=== PATIENT | female | born 1950 | race African-American/Black ===

== ENCOUNTER → 2016-12-01 | Outpatient (CLI) | payer OTHER ==
[~2016-12-01] MED LIST: ALENDRONATE SOD35 MG PO; ALEVE220 MG PO; ASPIRIN EC81 M1 PO; ATENOLOL 50MG T50 M1 PO; BIOTIN5 M1 PO; BIOTIN5000 MCG PO; CALCIUM 600 +1 EAC1 PO; CALCIUM 600 +1 EAC5 PO; CHILDREN'S ASPI81 M1 PO; COLLAGEN HYDROLY1 GM PO; DICLOFENAC SODI75 MG PO; EVAMIST8.1 ML TOP; FLAXSEED OIL1000 MG PO; HAIR, SKIN AND1 EACH PO; HYDROCHLOROTHIA25 M1 PO; JOINT CARE PO; LIPITOR 20 MG T20 M1 PO; MELOXICAM15 MG PO; METAFOLBIC TAB1 EACH PO; OMEGA 3 FISH O1 EACH PO; SIMVASTATIN20 MG PO; TONALIN CLA 11000 MG PO; TOPROL XL50 MG PO; TRAMADOL 50 MG50 MG PO; VITAMIN B-12500 MCG PO; VITAMINC500 PO; VOLTAREN GEL 1100 G2 TOP; [UNRECOGNIZED DRUG - OTHER] PO; [UNRECOGNIZED DRUG - OTHER] PO; [UNRECOGNIZED DRUG - OTHER] PO
== END ==
LOC: RAD 11-26 11:02
DX: Z12.31 Encounter for screening mammogram for malignant neoplasm of breast (principal)

== ENCOUNTER 2016-12-08 01:29 | Inpatient (IN) | payer OTHER ==
[2016-12-02 11:40] LABS: URINE BILIRUBIN NEGATIVE (Negative); URINE BLOOD NEGATIVE (Negative); URINE COLOR YELLOW; URINE GLUCOSE-RANDOM* NEGATIVE (Negative); URINE KETONES NEGATIVE (Negative); URINE LEUKOCYTES-REFLEX NEGATIVE (Negative); URINE PROTEIN (DIPSTICK) TRACE (Negative); URINE SPECIFIC GRAVITY >= 1.030 (1.003-1.035); URINE UROBILINOGEN 0.2 E.U./dl (0.2-1.0)
[2016-12-02 11:55] LABS: ALBUMIN 3.9 g/dL (3.4-5.0); CALCIUM 9.7 mg/dL (8.5-10.1); CREATININE 0.8 mg/dL (0.6-1.0); POTASSIUM 4.6 mmol/L (3.5-5.1)
[~2016-12-08] VITALS: Ht 165.1 cm; Wt 68.0 kg
[2016-12-08] VITALS (8 sets, daily range): BP systolic 99–138; BP diastolic 59–90
--- NOTE | ~2016-12-08 | O ---
[facility] [place] [address] [place] [address] OPERATIVE REPORT Name: JOANN VELA Room #: 409-P [facility] IN M.R.#: [id number] Admission: 12/08/16 Attend Phys: Kody Valera MD Discharge: Date of : 54 Report #: [id number] THIS REPORT FOR: //name// CC: Kiran Valera DATE OF SERVICE: 12/08/2016 PREOPERATIVE DIAGNOSIS: Right hip severe osteoarthritis. POSTOPERATIVE DIAGNOSIS: Right hip severe osteoarthritis. PROCEDURE: Right total hip arthroplasty. SURGEON: Kody Valera MD. INVISIBLE BRACES ORTHODONTIST: Marbella Fragoso PA-C. ANESTHESIA: General endotracheal. INDICATION FOR INVISIBLE BRACES ORTHODONTIST: Extensive retraction as well as dislocation and reduction of the hip was required throughout the procedure and this was afforded to me by my physician industrial hire sales assistant. IMPLANTS: Levi and Nephew size 52 R3 acetabular cup, size 11 high offset Synergy press-fit stem with a size 32+0 Oxinium head. ESTIMATED BLOOD LOSS: 100 mL. COMPLICATIONS: None. SPECIMENS: None. CONDITION UPON LEAVING THE OPERATING ROOM: Stable. INDICATIONS FOR PROCEDURE: The patient is a 66-year-old female with severe right hip osteoarthritis who had failed conservative treatment for this. After discussion with her, she elected for right total hip arthroplasty. DESCRIPTION OF PROCEDURE: Risks, benefits, alternatives, complications were discussed in detail with the patient including but not limited to risk of anesthesia, risk of damage to nerves, arteries, blood vessels, risk for infection, bleeding, risk for continued hip pain, leg length discrepancy, instability and need for reoperation. Informed consent was obtained from the patient. Right hip was appropriately marked in the preoperative holding area. IV Ancef was given for preoperative antibiotic. She was brought to the [facility] [address] [place] [address] OPERATIVE REPORT Name: JOANN VELA Room #: 409-P [facility] IN .R.#: [id number] Admission: 12/08/16 Attend Phys: Kody Valera MD Discharge: Date of : 54 Report #: [id number] operating room and placed in supine position on operating room table. General endotracheal anesthesia was induced without complication. She was placed in the left lateral decubitus position with the right hip uppermost. Right hip and lower extremity were prepped and draped in normal sterile fashion. Timeout was performed properly identifying the patient and procedure as well as the instrumentation and implants. All in the operating room were in agreement. Standard posterior approach to the hip was made with 10 blade through the skin. Dissection was taken down to the fascia with Bovie cautery and Sanchez elevator was used to clean off the fascia. A fresh #10 blade was used to make a fascial incision and this was taken proximally and distally with curved Steven scissor. Charnley retractor was placed. Trochanteric bursa was taken down with Bovie. The piriformis tendon was identified, tagged and taken down with Bovie. Short external rotators were also taken down with Bovie cautery. Capsulotomy was made and capsule ends were tagged for later repair. The hip was dislocated by my industrial hire sales assistant and there was extensive osteoarthritic change of the femoral head. Femoral neck cut was made 1 cm proximal to lesser trochanter based on preoperative templating. Femoral head was removed. Deep acetabular retractors were placed and labrum was removed sharply. Pulvinar was removed with Bovie cautery. The acetabulum was sequentially reamed up to a size 52, at which point there was excellent bleeding cancellous bone. A size 51 trial cup was placed and found to have a good fit. A final size 52 R3 acetabular cup was placed and one acetabular screw was placed for backup fixation. The polyethylene liner for 32 head was placed. After this, attention was turned to the femur. This was reamed and broached up to a size 11, at which point the size 11 broach was stable. This was trialed with a high offset neck and a 32+0 head. Hip was reduced, took through range of motion, found to be stable, found to have equal leg lengths. Hip was dislocated and the broach was removed. Final size 11 high offset Synergy press fit stem was placed. This was trialed again with a size 32+0 head. Hip was reduced, taken through range of motion, found to be stable, found to have equal leg lengths. The hip was dislocated one more time and a final size 32+0 Oxinium head was placed. Hip again was reduced, taken through range of motion, found to be stable, found to have equal leg lengths. A periarticular injection consisting of morphine, ropivacaine, epinephrine and Toradol was placed. The capsule and piriformis were repaired with 0 FiberWire. The fascia was closed with 0 Vicryl. A gram of vancomycin was placed deep in the hip joint prior to capsular closure. The fascia was closed with 0 Vicryl, skin was closed with 2-0 Vicryl, 3-0 Monocryl, and Dermabond. Soft dressing of GRZEGORZ dressing was applied. The patient tolerated this procedure well and went to the recovery room under the care of Anesthesia postoperatively. <ELECTRONICALLY SIGNED> By: Kody Valera MD 12/09/16 1053 [id number] [id number] Kody Valera MD /nt
--- NOTE | ~2016-12-08 | EKG ---
[address] [address] ELECTROCARDIOGRAM REPORT Name: JOANN VELA Room #: PRE IN [facility].#: [id number] Admission: Attend Phys: Kody Valera MD Discharge: Date of : 54 Report #: [id number] THIS REPORT FOR: //name// [facility] Test Date: 2016-12-02 Test Time: 10:44:24 Pat Name: JOANN VELA Department: Room: Gender: F Resolute Professional: Pedro IBRAHIM : 1950 Requested By: Kody Valera Order Number: [id number] MD: Michael Arreguin Measurements Intervals [place] Rate: 61 P: 50 [place]: 168 QRS: 50 QRSD: 81 T: 19 QT: 400 QTc: 403 Interpretive Statements Sinus rhythm Abnormal R-wave progression, early transition Compared to ECG 09/05/1996 10:48:00 No significant changes Electronically Signed On 12-02-2016 13:06:40 CDT by Michael Arreguin [email or web address] <ELECTRONICALLY SIGNED> By: Michael Arreguin MD 12/02/16 1306 1044 104 Michael Arreguin MD /DOLORES
[2016-12-09 00:16] VITALS: BP 100/70
[2016-12-09 05:40] VITALS: BP 119/73
[2016-12-09 06:35] LABS: HEMATOCRIT 28.6 % (37.0-47.0); HEMOGLOBIN 9.8 gm/dL (12.0-15.0); MCH 29.6 pg (26.0-34.0); MCHC 34.3 g/dL (28.0-37.0); MCV 86.4 fL (80.0-100.0); RBC 3.31 mil/uL (4.20-5.00); RDW 13.7 % (10.5-14.5); WBC 11.6 thou/uL (4.0-11.0)
[2016-12-09 09:27] VITALS: BP 119/65
[2016-12-09 20:00] VITALS: BP 98/61
[2016-12-10 06:00] LABS: HEMATOCRIT 27.4 % (37.0-47.0); HEMOGLOBIN 9.5 gm/dL (12.0-15.0); MCH 30.1 pg (26.0-34.0); MCHC 34.5 g/dL (28.0-37.0); RBC 3.14 mil/uL (4.20-5.00); RDW 13.7 % (10.5-14.5); WBC 7.6 thou/uL (4.0-11.0)
[2016-12-10 08:50] VITALS: BP 95/64
[2016-12-10 16:03] VITALS: BP 98/64
[2016-12-10 19:40] VITALS: BP 99/59
[2016-12-11 04:00] VITALS: BP 95/58
[2016-12-11 06:32] LABS: HEMATOCRIT 26.6 % (37.0-47.0); HEMOGLOBIN 9.1 gm/dL (12.0-15.0); MCH 29.8 pg (26.0-34.0); MCHC 34.2 g/dL (28.0-37.0); RBC 3.06 mil/uL (4.20-5.00); RDW 13.6 % (10.5-14.5); WBC 7.4 thou/uL (4.0-11.0)
[2016-12-11 08:00] VITALS: BP 105/57
[2016-12-11] MEDS ORDERED: HYDROCODON-ACE1 EAC7 PO (10:28)
[2016-12-11] MEDS ORDERED: CVS BUFFERED A325 MG PO (10:28)
[2016-12-11] MEDS ORDERED: MS CONTIN15 MG PO (10:29)
[2016-12-11 12:08] VITALS: BP 105/57
[2016-12-11 15:57] VITALS: BP 105/57
[2016-12-11 17:13] VITALS: BP 105/57
== END 2016-12-11 19:10 | disposition home or self-care (01) | DRG 470 ==
LOC: PRE → TBA 07:46 → 4N 07:46 → PRE 08:41 → 4N 15:48
PROVIDERS: Orthopaedic Surgery
PROC: 0SR903A Replacement of Right Hip Joint with Ceramic Synthetic Substitute, Uncemented, Open Approach (ICD-10-PCS; principal; 2016-12-08)
DX: M16.11 Unilateral primary osteoarthritis, right hip (principal); Z23 Encounter for immunization
CPT/HCPCS: 10790; 50010; 50101; 50382; 50414; 51771; 53000; 53078; 53368; 54118; 56524; 56527; 56528; 56530; 57095; 62110; 62900; 70005

== ENCOUNTER → 2017-08-03 | Outpatient (CLI) | payer OTHER ==
[~2017-08-03] MED LIST changes: +CVS BUFFERED A325 MG PO; +HYDROCODON-ACE1 EAC7 PO; +MS CONTIN15 MG PO
== END ==
LOC: CAT 13:05
DX: M25.551 Pain in right hip (principal)

== ENCOUNTER → 2017-08-06 | Outpatient (CLI) | payer OTHER | LOC: ULTRA 06:38 | DX: M71.21 Synovial cyst of popliteal space [Baker], right knee (principal) ==

== ENCOUNTER → 2017-12-16 | Outpatient (CLI) | payer OTHER | LOC: RAD 02:42 | DX: Z12.31 Encounter for screening mammogram for malignant neoplasm of breast (principal) ==

== ENCOUNTER 2018-07-22 05:42 | Inpatient (IN) | payer OTHER ==
[2018-07-14 09:04] LABS: HEMATOCRIT 44.1 % (37.0-47.0); HEMOGLOBIN 14.7 gm/dL (12.0-15.0); MCH 29.7 pg (26.0-34.0); MCHC 33.3 g/dL (28.0-37.0); RBC 4.95 mil/uL (4.20-5.00); RDW 14.4 % (10.5-14.5); WBC 5.8 thou/uL (4.0-11.0)
[2018-07-14 09:05] LABS: URINE BILIRUBIN NEGATIVE (Negative); URINE BLOOD NEGATIVE (Negative); URINE CLARITY CLEAR; URINE COLOR YELLOW; URINE GLUCOSE-RANDOM* NEGATIVE (Negative); URINE KETONES NEGATIVE (Negative); URINE LEUKOCYTES-REFLEX NEGATIVE (Negative); URINE NITRITE-REFLEX NEGATIVE (Negative); URINE PROTEIN (DIPSTICK) NEGATIVE (Negative)
[2018-07-14 09:14] LABS: CALCIUM 9.6 mg/dL (8.5-10.1); CREATININE 0.9 mg/dL (0.6-1.0); POTASSIUM 4.3 mmol/L (3.5-5.1)
--- NOTE | 2018-07-15 16:25 | EKG ---
[address] [address] ELECTROCARDIOGRAM REPORT Name: JOANN VELA Room #: PRE IN [facility].#: [id number] ������������������ Admission: ������������������ Attend Phys: Kody Valera MD Discharge: ������������������ Date of : 54 Report #: [id number] ����������������������������������������������������������������� [id number] THIS REPORT FOR: //name// [facility] Test Date: 2018-07-14 Test Time: 09:00:38 Pat Name: JOANN VELA Department: Room: Gender: F Financial Assistance Specialist: [place]ber[place] : 1950 Requested By: Kody Valera Order Number: [id number] MD: Michael Arreguin Measurements Intervals [place] Rate: 60 P: 44 [place]: 179 QRS: 46 QRSD: 83 T: 13 QT: 403 QTc: 403 Interpretive Statements Sinus rhythm Abnormal R-wave progression, early transition Baseline wander in lead(s) V2 Compared to ECG 12/02/2016 10:44:24 No significant changes Electronically Signed On 07-15-2018 16:24:52 CDT by Michael Arreguin [email or web address] ��������������������������������������������� <ELECTRONICALLY SIGNED> ���������������������������������������� By: Michael Arreguin MD ��������������������������������������������� 07/15/18 1624 09 9 Michael Arreguin MD /DOLORES
[~2018-07-22] VITALS: Ht 165.1 cm; Wt 74.4 kg
[~2018-07-22 05:42] MED LIST changes: +ASPIR 8181 M1 PO; +GARCINIA CAMBO1 EACH PO; +JOINT HEALTH T1 EACH PO
[2018-07-22 12:56] VITALS: BP 141/88
[2018-07-22 19:20] VITALS: BP 137/84
--- NOTE | 2018-07-22 20:07 | NUR ---
ARRIVED TO FLOOR VIA BED FROM PACU AWAKE, ALERT AND ORIENTED X 4. VERY PLEASANT AND COOPERATIVE. ZOFRAN GIVEN FOR NAUSEA AND HAD COMPLETE RELIEF. GRZEGORZ DRESSING INTACT AND COMPRESSED TO RIGHT KNEE. TOLERATING REGULAR DIET. PERCOCET GIVEN FOR PAIN AND HAD PARTIAL RELIEF. SCD'S/PEDRO'S ON. ICE PACK TO RIGHT KNEE INCISION. FALL PRECAUTIONS IN PLACE.
--- NOTE | 2018-07-23 03:01 | NUR ---
ASSUMED CARE AROUND 1900. AXOX4. S/P R OA. GRZEGORZ DRESSING CDI. NO S/S ACUTE DISTRESS NOTED OR REPORTED AT THIS TIME. WILL CONT TO MONITOR FOR ANY CHANGES IN CONDITION.
[2018-07-23 03:41] VITALS: BP 126/72
[2018-07-23 05:41] LABS: HEMATOCRIT 36.7 % (37.0-47.0); HEMOGLOBIN 12.3 gm/dL (12.0-15.0); MCH 29.6 pg (26.0-34.0); MCHC 33.4 g/dL (28.0-37.0); MCV 88.8 fL (80.0-100.0); RBC 4.14 mil/uL (4.20-5.00); WBC 13.6 thou/uL (4.0-11.0)
[2018-07-23 07:51] VITALS: BP 119/61
--- NOTE | 2018-07-23 12:12 | O ---
[facility] [place] [address] OPERATIVE REPORT Name: ISIS VELAADELAIDA Heredia Room #: 458-P [facility] IN M.R.#: [id number] Admission: 07/22/18 ������������������ Attend Phys: Kody Valera MD Discharge: ������������������ Date of : 54 Report #: [id number] THIS REPORT FOR: //name// CC: Kiran Valera DATE OF SERVICE: 07/22/2018 PREOPERATIVE DIAGNOSIS: Right knee osteoarthritis. POSTOPERATIVE DIAGNOSIS: Right knee osteoarthritis. PROCEDURE: Right total knee arthroplasty using Navio robotic grooming assistant. SURGEON: Kody Valera MD. INSIDE SALES CONSULTANT: Marbella Fragoso PA-C. INDICATIONS FOR INSIDE SALES CONSULTANT: Throughout the case, extensive retraction and manipulation of the knee was required, this was afforded to me by my grooming assistant. ANESTHESIA: LMA with an adductor canal block. IMPLANTS: Levi and Nephew size 4 Journey II BCS Oxinium femur, a size 3 tibia, size 9 polyethylene and size 32 patella. TOURNIQUET TIME: 56 minutes. ESTIMATED BLOOD LOSS: 25 mL. COMPLICATIONS: None. SPECIMENS: None. CONDITION UPON LEAVING THE OPERATING ROOM: Stable. INDICATION FOR PROCEDURE: The patient is a 67-year-old female with severe right knee osteoarthritis. She had failed conservative measures for this and after discussion with her, she elected for right total knee arthroplasty. DESCRIPTION OF PROCEDURE: Risks, benefits, alternatives, complications were discussed in detail with the patient including but not limited to risk of anesthesia, risk of damage to nerves, arteries, blood vessels, risk for infection, bleeding, risk for continued knee pain and need for reoperation. Informed consent was obtained from the patient. The right knee was appropriately marked in the preoperative holding area. IV Ancef was given for [address] [address] OPERATIVE REPORT Name: JOANN VELA Room #: 458-P [facility] IN .R.#: [id number] Admission: 07/22/18 ������������������ Attend Phys: Kody Valera MD Discharge: ������������������ Date of : 54 Report #: [id number] preoperative antibiotics. Adductor canal block was placed by Anesthesia. She was brought to the operating room and placed in supine position on the operating room table. LMA anesthesia was induced without complication. Tourniquet was placed on the right thigh. Right lower extremity was prepped and draped in normal sterile fashion. Timeout was performed properly identifying the patient and procedure as well as the instrumentation and implants. All in the operating room were in agreement. Right lower extremity was exsanguinated. Tourniquet was inflated. Tourniquet time was 56 minutes. Standard midline approach to the knee was made with 10 blade through the skin. Dissection was taken down sharply to the fascia. Deep flaps were developed medially and laterally. Fresh 10 blade was used to make a medial parapatellar arthrotomy and the knee was inspected. There was severe tricompartmental osteoarthritic change. ACL and PCL were removed sharply. Reference pins were placed in the femur and the tibia and the knee was then initially mapped using the Scutum robotic system. Intraoperative plan was made. We sized a size 4 femur, a size 3 tibia with a size 10 spacer. After acceptance of the intraoperative plan, the distal femoral cut was made with a Navio jenny. The femoral chamfer cutting block was then pinned in place and the chamfer cuts were made. Attention was then turned to the tibia. The remainder of the menisci were removed with Bovie cautery. The tibial resection guide was then pinned in place and tibial resection was made using the Scutum system for placement of the resection guide. After this, flexion and extension gaps were checked and found to have good balance in flexion and extension both medially and laterally. The tibia was sized, found to be a size 3. A size 3 tibial trial was placed, pinned and punched and a size 4 femoral trial was placed and the box cut was made. This was then trialed with a size 9 polyethylene. Knee was taken through range of motion, found to have 1 mm of laxity medially and laterally throughout range of motion both manually as well as digitally. 9 mm was taken off the posterior surface of the patella and a size 32 patellar trial was placed. Knee was taken through range of motion, found to have good patellar tracking. After this, the trial components were removed. Bony ends were thoroughly irrigated with normal saline. A final size 3 tibia, size 4 Journey II BCS Oxinium femur and a size 32 patella were cemented in place using standard cementation techniques. While the cement cured, a periarticular injection consisting of morphine, ropivacaine, epinephrine and Toradol was placed around the knee joint capsule. After the cement cured, the tourniquet was deflated. Hemostasis was obtained with Bovie cautery. A final size 9 polyethylene was placed. A gram of vancomycin was placed deep in the joint. Fascia was closed with 0 Vicryl, skin was closed with 2-0 Vicryl, 3-0 Monocryl. Dermabond and a GRZEGORZ dressing was applied. The patient tolerated this procedure well and went to recovery room under care of Anesthesia postoperatively. ��������������������������������������������� <ELECTRONICALLY SIGNED> ���������������������������������������� By: Kody Valera MD ��������������������������������������������� 07/23/18 1212 1516 1541 Kody Valera MD /nt
--- NOTE | 2018-07-23 14:39 | NUR ---
PT ADMITTED RELATED TO RIGHT TOTAL KNEE REPLACEMENT. CM REVIEWED CHART AND SPOKE WITH CARE TEAM. CM MET WITH PT AT BEDSIDE THIS DAY. PT IS A&O X4. CM ROLE INTRODUCED. PT INDICATED THAT SHE LIVES ALONE IN A TRI LEVEL HOUSE WITH 8 STEPS TO MAIN LIVING ARE AND 7 STEPS DOWN TO ANOTHER LIVING AREA. 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 PT INDICATED SHE HAD A HIP DONE HERE IN 2016 AND THAT SHE MIGHT HAVE HAD A FWW ISSUED THEN BUT SHE CAN'T RECALL. PT INDICATED HER BOYFRIEND WILL BE ABLE TO ASSIST HER UPON PROBABLE DC TOMORROW. PT INDICATED PREFERENCE FOR HH SERVICES UPON DC. CM TO FOLLOW INDICATED WITH DC PLANNING.
--- NOTE | 2018-07-23 15:20 | NUR ---
DISCHARGE PLANNING. ANTICIPATED DISCHARGE IS PLANNED FOR TOMORROW. PATIENT IS POST RIGTH KNEE ARTHROPLASTY. HOME HEALTH RECOMMENDED AT DISCHARGE. REFERRAL FAXED TO [facility] FOR REVIEW. CALL PLACED TO [facility] TO NOTIFY OF REFERRAL. [facility] TO REVIEW AND WILL CONTACT ONCE COMPLETE. FOLLOWING TO ASSIST WITH DISCHARGE. [facility] CONTACT NUMBER [phone] FAX [phone]
--- NOTE | 2018-07-23 16:37 | NUR ---
CM HAD PROVIDER PLUS CHECK TO SEE IF PT COULD HAVE A NEW FWW. THEY INDICATED THAT SHE HAD ONE ISSUED TO HER IN 2017. PT INDICATED SHE HAS ONE SHE CAN USE UPON DC. SHOULD PT DC OVER THER WEEKEND FAX REFERRAL TO [facility] AT .
[2018-07-23 17:20] VITALS: BP 119/61
--- NOTE | 2018-07-23 20:36 | NUR ---
PT A&OX4, VSS, PAIN IN KNEE MANAGED WITH MEDICATION. PT WALKED WITH PHYSICAL THERAPIST TODAY. FAMILY IN TO VISIT. NO SIGNS OF DISTRESS. GRZEGORZ DRESSING ON KNEE C/D/I. WILL CONTINUE TO MONITOR.
--- NOTE | 2018-07-24 04:33 | NUR ---
ASSUMED CARE OF PT AT 1900HRS. PT A0X4 AND SLEPT PART OF THE SHIFT. PAIN AT SURGICAL SITE WAS DIFFICULT TO MANAGE. MORPHINE, PERCOET, AND ICE PACK WAS USED TO MANAGE PAIN. GRZEGORZ DRESSING IS DRY AND INTACT. NO OTHER S/S OF ACUTE DISTRESS. WILL CONTINUE TO MONITOR.
[2018-07-24 04:54] LABS: HEMATOCRIT 34.2 % (37.0-47.0); HEMOGLOBIN 11.6 gm/dL (12.0-15.0); MCH 30.1 pg (26.0-34.0); MCHC 34.1 g/dL (28.0-37.0); MCV 88.5 fL (80.0-100.0); RBC 3.86 mil/uL (4.20-5.00); RDW 14.3 % (10.5-14.5); WBC 8.4 thou/uL (4.0-11.0)
[2018-07-24 05:39] VITALS: BP 138/79
[2018-07-24 08:00] VITALS: BP 158/73
--- NOTE | 2018-07-24 12:39 | NUR ---
TOWARDS POC PT A/O X4, VSS,AFEBRILE, PAIN AND NAUSEA MANAGED BY MEDS. PT UP WITH PHY. THERAPY THIS AM. NEURO VASCULAR INTACT. NO CONCERNS VOICED WILL CONTINUE TO MONITOR.
[2018-07-24 15:00] VITALS: BP 131/105
[2018-07-24 19:07] VITALS: BP 124/73
--- NOTE | 2018-07-25 02:12 | NUR ---
ASSUMED CARE OF PT AT 1900HRS. PT IS AOX4 AND IS ABLE TO AMBULATE WELL WITH A WALKER. PT REPORTED SOME PAIN AND WAS MEDICATED ACCORDINGLY. PT WAS COMFORTABLE AND SLEEP PART OF THE SHIFT. NO OTHER S/S OF ACUTE DISTRESS. WILL CONTINUE TO MONITOR.
[2018-07-25 04:56] VITALS: BP 124/64
[2018-07-25 04:56] LABS: HEMATOCRIT 37.3 % (37.0-47.0); HEMOGLOBIN 12.3 gm/dL (12.0-15.0); MCH 29.6 pg (26.0-34.0); MCHC 33.1 g/dL (28.0-37.0); MCV 89.4 fL (80.0-100.0); RBC 4.17 mil/uL (4.20-5.00); RDW 14.1 % (10.5-14.5); WBC 8.7 thou/uL (4.0-11.0)
[2018-07-25 08:04] VITALS: BP 103/66
--- NOTE | 2018-07-25 13:16 | NUR ---
DIS PT PENDING DC TODAY. PAIN MANAGED BY SRINIVAS SANDOVAL PROVIDE. DC SUMMARY, DC ORDERS FAXED AND CALL IN TO [facility]. WILL CONTINUE TO MONITOR.
== END 2018-07-25 16:30 | disposition home health service (06) | DRG 470 ==
LOC: PRE 05:42 → 4W 07:33 → TBA 07:33 → PRE 08:06 → 4W 17:45
PROVIDERS: ADMIT Orthopaedic Surgery
PROC: 8E0Y0CZ Robotic Assisted Procedure of Lower Extremity, Open Approach (ICD-10-PCS; principal; 2018-07-22)
PROC: 0SRC069 Replacement of Right Knee Joint with Oxidized Zirconium on Polyethylene Synthetic Substitute, Cemented, Open Approach (ICD-10-PCS; principal; 2018-07-22)
DX: M17.11 Unilateral primary osteoarthritis, right knee (principal)
CPT/HCPCS: 10047; 50010; 50101; 50415; 50954; 51130; 51225; 53000; 53078; 54118; 55372; 56527; 56528; 57095; 57103; 57110; 57127; 57180; 62110; 62900; 65060; 70005

== ENCOUNTER → 2019-01-18 | Outpatient (CLI) | payer OTHER | LOC: RAD 01:19 | DX: Z12.31 Encounter for screening mammogram for malignant neoplasm of breast (principal) ==

== ENCOUNTER → 2019-01-26 | Outpatient (CLI) | payer OTHER | LOC: NUC 11:04 | DX: M81.0 Age-related osteoporosis without current pathological fracture (principal); Z78.0 Asymptomatic menopausal state; M85.89 Other specified disorders of bone density and structure, multiple sites ==

== ENCOUNTER → 2020-01-30 | Outpatient (CLI) | payer OTHER | LOC: BC 10:19 | PROVIDERS: ATTEND Family Medicine | DX: Z12.31 Encounter for screening mammogram for malignant neoplasm of breast (principal) ==

== ENCOUNTER → 2021-01-30 | Outpatient (CLI) | payer OTHER | LOC: BC 12:35 | PROVIDERS: ATTEND Nurse Practitioner | DX: Z12.31 Encounter for screening mammogram for malignant neoplasm of breast (principal); R05.9 Cough, unspecified; N64.89 Other specified disorders of breast ==

== ENCOUNTER → 2021-02-20 | Outpatient (CLI) | payer OTHER | LOC: NUC 13:24 | PROVIDERS: ATTEND Nurse Practitioner | DX: M85.88 Other specified disorders of bone density and structure, other site (principal) ==